=== PATIENT | female | born 1985 | race Caucasian/White ===

== ENCOUNTER 2017-12-19 15:08 | Outpatient (CLI) | payer OTHER ==
--- NOTE | 2017-12-19 17:42 | ULT ---
OB ULTRASOUND: 12/19/17 Real time imaging of the pelvis shows a single viable intrauterine which is in a predominan tly transverse lie. Head more on the maternal left side. The placenta is posterior in location withou t evidence of previa. The cervical canal length was 3.5 cm. Review of anatomy shows a normal appearing head structures, four chamber heart, stomach, kidney s, bladder, cord insertion, spine, three vessel cord is identified. Amniotic fluid is adequate for this stage of with amniotic fluid index of 10.9. measurements are as follows: BPD 4.8 cm 20 weeks, 4 days Head circumference 18.3 cm 20 weeks, 5 days Abdominal circumference 15.5 cm 20 weeks, 4 days Femur length 3.6 cm 21 weeks, 2 days heart rate is 145 beats per minute. IMPRESSION: 1. Single viable intrauterine in a transverse lie. Overall measurements correspond to a gestational age at 20 weeks, 4 days. Estimated date of delivery 05/04/18. 2. Placenta which is posterior in location without evidence of previa. POS: [facility]
== END 2017-12-19 15:09 | disposition home or self-care (01) ==
LOC: SCSULT 15:08
PROVIDERS: ATTEND Family Medicine
DX: Z34.82 Encounter for supervision of other normal pregnancy, second trimester (principal); Z3A.20 20 weeks gestation of pregnancy
CPT/HCPCS: 76805

== ENCOUNTER 2018-04-28 20:56 | Day surgery (SDC) | payer OTHER ==
[2018-04-28 21:53] VITALS: BMI 28.9
--- NOTE | 2018-04-28 23:08 | PRG ---
DATE OF SERVICE: 04/28/2018 OB ED NOTE TIME OF SERVICE: 2225 hours. PRESENTING COMPLAINT: Contractions. HISTORY OF PRESENT ILLNESS: Ms. Dejesus is a 32-year-old 2, para 1 with EDC of 05/01, who sees Dr. Radha Agee. She reports being 4, 80, and -1 in the office. She is having more pelvic pressure since Dr. Agee stripped her membrane. She is scheduled for induction in 2 days. She reports an active fetus. She denies rupture of membranes. [employer]ATOR HISTORY: Previous at 41 weeks and 3 days. Uncomplicated . Early enrollment in care. WILNER is based on a 9 week and 0 day crown-rump length on 09/26/2017. The patient had an elevated 1 hour GTT and a normal 3 hour GTT. Blood type is O positive. Group B strep is negative. PAST MEDICAL HISTORY: Denies. PAST SURGICAL HISTORY: Denies. ALLERGIES: DENIES. MEDICATIONS: vitamins. SOCIAL HISTORY: Denies tobacco, alcohol, or drug abuse. FAMILY HISTORY: Noncontributory. REVIEW OF SYSTEMS: Noncontributory. PHYSICAL EXAMINATION: GENERAL: White female, in no acute distress. VITAL SIGNS: Blood pressure 118/72, pulse 85, respirations 18, and temperature 98.6. HEENT: Within normal limits. LUNGS: Clear to auscultation bilaterally. HEART: Regular rate and rhythm. ABDOMEN: Soft and nontender with occasional irritability. No palpable contractions. FHTs are 140s. Vulva without lesions. Vagina is without discharge. Cervix by RN is unchanged at 4, 75, -1 cephalic by . IMPRESSION: Term . No evidence of active labor with induction of labor scheduled in approximately 48 hours. PLAN: ER precautions. Discharge home. Follow up as needed. Job ID: [id number]
== END 2018-04-28 22:35 | disposition home health service (06) ==
LOC: L&D/OP 20:56
PROVIDERS: ATTEND Family Medicine
DX: O47.1 False labor at or after 37 completed weeks of gestation (principal); Z88.1 Allergy status to other antibiotic agents; Z79.899 Other long term (current) drug therapy
CPT/HCPCS: 99282

== ENCOUNTER 2018-04-30 05:51 | Inpatient (IN) | payer OTHER ==
[2018-04-30] MEDS ORDERED: Butorphanol Tartrate 1 MG/ML VIAL SLOW IVP PRN (06:16)
[2018-04-30] MEDS ORDERED: Ibuprofen 800 MG TAB PO PRN (06:16)
[2018-04-30] MEDS ORDERED: Ondansetron PF 4 MG/2 ML Vial IVP PRN ×3 (06:16→17:45)
[2018-04-30] MEDS ORDERED: Lidocaine 1% (PF) 30 ML VIAL SC PRN (06:16)
[2018-04-30] MEDS ORDERED: Promethazine HCl 25 MG/ML VIAL IM PRN ×2 (06:16→10:45)
[2018-04-30] MEDS ORDERED: Acetaminophen 500 MG TAB PO PRN (06:16)
[2018-04-30] MEDS ORDERED: NS / Oxytocin 40 units/1000ml 1,000 ML IV PRN (06:16)
[2018-04-30] MEDS ORDERED: Acetaminophen/Codeine 30-300mg Tablet PO PRN (06:16)
[2018-04-30] MEDS ORDERED: Misoprostol 200 MCG TAB PR PRN (06:16)
[2018-04-30] MEDS ORDERED: HYDROcodone/Acetaminophen 5/325 mg Tablet PO PRN ×2 (06:16→17:45)
[2018-04-30 06:19] VITALS: BMI 28.9
[2018-04-30] MEDS ORDERED: NS w/ Oxytocin 10 units 500 ML IV SCH ×2 (06:30)
[2018-04-30] MEDS ORDERED: Penicillin G Potassium 5 MILL.UNITS in Sodium Chloride 0.9% 100 ML IVPB SCH (06:30)
[2018-04-30] MEDS: Lactated Ringer's 1,000 ML IV SCH ×2 (06:35→11:01)
[2018-04-30 06:44] LABS: Hemoglobin 11.7 g/dL (12.0-16.0); Mean Corpuscular HGB CONC 33.1 g/dL (32.0-36.0); Mean Corpuscular Hemoglobin 28.8 pg (27.0-31.0); Mean Platelet Volume 7.7 fL (7.4-10.4); Platelet Count 221 thou/uL (130-400); RBC Distribution Width 12.7 % (11.5-14.5); Red Blood Cell (RBC) Count 4.07 mill/uL (4.20-5.40); White Blood Cell (WBC) Count 9.2 thou/uL (4.8-10.8)
[2018-04-30 07:21] LABS: HBSAg Index 0.19 S/CO (0-0.99); Hep B Surf Ag Non-Reactive S/CO (NonReactive); Syphilis Antibody Nonreactive (Nonreactive); Syphilis Antibody Index 0.04 S/CO (<1.00 Non-Reactive)
[2018-04-30] MEDS ORDERED: Fentanyl 4 mcg/Bup 0.1% Cadd 100 ML ONE (07:21)
[2018-04-30] MEDS ORDERED: Fentanyl 100 MCG/2 ML VIAL ONE (07:57)
[2018-04-30] MEDS ORDERED: Fentanyl 100 MCG/2 ML VIAL EPIDURAL ONE (08:05)
[2018-04-30] MEDS ORDERED: diphenhydrAMINE 50 MG/ML VIAL ONE (08:29)
[2018-04-30] MEDS ORDERED: Penicillin G 2.5 MILL.units 2.5 MILL.UNITS in Premix Bag 1 BAG IVPB SCH (10:00)
[2018-04-30] MEDS ORDERED: ePHEDrine/0.9% NaCl/PF SYRINGE 50 mg/10 ml SLOW IVP PRN (10:45)
[2018-04-30] MEDS ORDERED: Acetaminophen 325 MG TAB PO PRN (10:45)
[2018-04-30] MEDS ORDERED: Eucerin (Mineral Oil/Petrolatum,White) 30 gm Jar TOP PRN (10:45)
[2018-04-30] MEDS ORDERED: Naloxone HCl 0.4 mg/ml Vial IVP PRN ×2 (10:45)
[2018-04-30] MEDS ORDERED: Fentanyl 4 mcg/Bupivacaine 0.1% Cassette 100 ML EPIDURAL SCH (10:45)
[2018-04-30] MEDS ORDERED: Communication Order-Pharmacy FS SCH (10:45)
[2018-04-30] MEDS ORDERED: diphenhydrAMINE 50 MG/ML VIAL IVP PRN (10:45)
[2018-04-30] MEDS ORDERED: Lactated Ringer's 500 ML IV PRN (10:45)
[2018-04-30] MEDS ORDERED: Bupivacaine 0.25% HCL 30 ML VIAL ONE (11:11)
[2018-04-30] MEDS ORDERED: NS / Oxytocin 40 units/1000ml 1,000 ML IV SCH (17:45)
[2018-04-30] MEDS ORDERED: Preparation H Ointment 28 GM TUBE PR PRN (17:45)
[2018-04-30] MEDS ORDERED: Lanolin Ointment 7 GM TUBE TOP PRN (17:45)
[2018-04-30] MEDS ORDERED: Bisacodyl 10 MG SUPP PR PRN (17:45)
[2018-04-30] MEDS ORDERED: Benzocaine/Menthol 20-0.5% 60 ML CAN TOP PRN (17:45)
[2018-04-30] MEDS ORDERED: Milk Of Magnesia 30 ML UDCUP PO PRN (17:45)
[2018-04-30] MEDS ORDERED: diphenhydrAMINE 25 MG CAP PO PRN (17:45)
[2018-04-30] MEDS ORDERED: Prenatal Vitamin 1 TAB PO SCH (18:15)
[2018-04-30] MEDS ORDERED: Docusate Calcium (SURFAK) 240 MG CAP PO SCH (18:15)
[2018-04-30] MEDS: Ibuprofen 800 MG TAB PO SCH (21:25)
[2018-04-30] MEDS: Docusate Calcium (SURFAK) 240 MG CAP PO SCH (21:25)
[2018-04-30] MEDS: Acetaminophen/Codeine 30-300mg Tablet PO PRN (22:49)
[2018-05-01] MEDS: Ferrous Sulfate 325 MG TAB PO SCH ×2 (03:12→09:20)
[2018-05-01] MEDS: Ibuprofen 800 MG TAB PO SCH ×2 (06:31→15:22)
[2018-05-01 08:10] VITALS: TEMP 97.7
[2018-05-01] MEDS ORDERED: Prenatal Vitamin 1 TAB PO SCH (09:00)
[2018-05-01] MEDS: Docusate Calcium (SURFAK) 240 MG CAP PO SCH (09:21)
[2018-05-01] MEDS: Acetaminophen/Codeine 30-300mg Tablet PO PRN (10:08)
[2018-05-01 11:44] VITALS: BP 105/66
== END 2018-05-01 16:30 | disposition home or self-care (01) | DRG 807 ==
LOC: L&D 05:51 → 3SE 18:52
PROVIDERS: ADMIT Family Medicine; ATTEND Family Medicine
PROC: 10E0XZZ Delivery of Products of Conception, External Approach (ICD-10-PCS; principal; 2018-04-30)
PROC: 0KQM0ZZ Repair Perineum Muscle, Open Approach (ICD-10-PCS; 2018-04-30)
PROC: 10907ZC Drainage of Amniotic Fluid, Therapeutic from Products of Conception, Via Natural or Artificial Opening (ICD-10-PCS; 2018-04-30)
PROC: 3E033VJ Introduction of Other Hormone into Peripheral Vein, Percutaneous Approach (ICD-10-PCS; 2018-04-30)
DX: O48.0 Post-term pregnancy (principal); Z37.0 Single live birth; Z3A.40 40 weeks gestation of pregnancy; O70.1 Second degree perineal laceration during delivery
CPT/HCPCS: 36415; 51702; 85027; 86780; 86850; 86900; 86901; 87340; J1200; J2001; J2540; J3010; J7050; S0020

== ENCOUNTER 2019-08-28 14:59 | Outpatient (CLI) | payer OTHER ==
--- NOTE | 2019-08-28 15:37 | ULT ---
Exam: Thyroid ultrasound HISTORY: Swelling. Evaluate for Mass. COMPARISON: None FINDINGS: Thyroid isthmus: 0.17 cm Right thyroid lobe 1.8 x 3.9 x 1.4 cm Left thyroid lobe 3.7 x 1.2 x 1.1 cm There are no thyroid nodules In the region of palpable concern, there are no solid or cystic masses. No lymphadenopathy. Incidenta l vessel is noted. IMPRESSION: 1. No thyroid masses. Homogeneous thyroid echotexture. 2. No solid or cystic masses or lymphadenopathy in the region of concern. Incidental vessel is identi fied.
== END 2019-08-28 15:00 | disposition home or self-care (01) ==
LOC: SCSULT 14:59
PROVIDERS: ATTEND Family Medicine
DX: R22.1 Localized swelling, mass and lump, neck (principal); R94.6 Abnormal results of thyroid function studies
CPT/HCPCS: 76536